=== PATIENT | female | born 1935 | race Caucasian/White ===

== ENCOUNTER 2018-05-04 20:23 | Emergency (ER) | payer MEDICARE, OTHER ==
[~2018-05-04] VITALS: Wt 52.5 kg
[2018-05-04 20:24] VITALS: BP 126/69; PULSE 71; RESP 19
[2018-05-04] MEDS ORDERED: IBUPROFEN 200 MG TAB PO ONE (20:30)
[2018-05-04] MEDS ORDERED: ACETAMINOPHEN 325 MG TAB PO ONE (21:00)
[2018-05-04] MEDS ORDERED: HYDR-4011 PO ×2 (21:57→21:58)
--- NOTE | 2018-05-05 00:42 | ERD ---
ER Documentation Chief Complaint Chief Complaint bib self, cc: right wrist to pain s/p fall 2 hours river boat [employer], mechanical HPI 82-year-old female presents with right wrist pain due to a mechanical ground- level fall that occurred 2 hours prior to being seen. Patient's pain is increased with movement. It is this moderate in severity with movement. She denies taking any medications for pain for this. ROS All systems reviewed and are negative except as per history of present illness. Medications Home Meds Discontinued Scripts Hydrocodone/Acetaminophen ([place] 5-325 Tablet) 1 Each Tablet, 1 TAB PO Q6H PRN for PAIN, #20 TAB Prov:TAMMY VILLARREAL PA-C 05/04/18 Allergies Allergies: Coded Allergies: No Known Allergy (Unverified , 05/04/18) PMhx/Soc Hx Cardiac Disorders: Yes (htn, dm) Hx Miscellaneous Medical Probl: Yes (hypothyroid) Hx Alcohol Use: No Hx Substance Use: No Hx Tobacco Use: No Smoking Status: Never smoker Physical Exam Vitals Vital Signs Date Temp Pulse Resp B/P (MAP) Pulse Ox O2 O2 Flow FiO2 Time Delivery Rate 05/04/18 98.2 71 19 126/69 100 20:24 (88) Physical Exam Const: No acute distress Head: Atraumatic Eyes: Normal Conjunctiva ENT: Normal External Ears, Nose and Mouth. Neck: Full range of motion. No meningismus. Resp: Clear to auscultation bilaterally Cardio: Regular rate and rhythm, no murmurs Abd: Soft, non tender, non distended. Normal bowel sounds Skin: No petechiae or rashes Back: No midline or flank tenderness Ext: Tender palpation in the radial aspect of the right wrist, negative snuffbox tenderness, +2 radial pulse, neurovascular intact Neur: Awake and alert Psych: Normal Mood and Affect Results 24 hrs Current Medications Medications Dose Sig/Benita Start Time Status Last (Trade) Ordered Route PRN Stop Time Admin Dose Reason Admin Ibuprofen 400 mg ONCE ONCE 05/04/18 DC 05/04/18 (Motrin) PO 20:30 05/04/18 20:39 20:31 650 mg ONCE ONCE 05/04/18 DC 05/04/18 Acetaminophen PO 21:00 05/04/18 20:46 (Tylenol 21:01 Tab) Procedures/MDM This is a 82-year-old female presenting with wrist fracture due to a mechanical fall FOOSH injury that occurred 2 hours prior to being seen. Patient was found to have mild impaction fracture of the distal right radial metaphysis, with mildly displaced intra-articular component and nondisplaced oblique fracture at the base of the ulnar styloid. Patient was placed in a sugar tong splint and given a sling. She is neurovascular intact pre-and post treatment. She is instructed to follow-up with orthopedist in the next day. Return precautions have been given she understands and agrees with this plan XR RIGHT WRIST 1. Mild impaction fracture of the distal right radial metaphysis, with mildly displaced intra-articular component. 2. Nondisplaced oblique fracture at the base of the ulnar styloid. Departure Diagnosis: Primary Impression: Distal radial fracture Additional Impression: Fracture of ulnar styloid Condition: Stable Patient Instructions: Treating Wrist Fractures, Fracture, Wrist [General] TAMMY VILLARREAL PA-C May 05, 2018 00:42
== END 2018-05-04 22:38 | disposition home or self-care (01) ==
LOC: FTE 20:23
DX: S52.571A Other intraarticular fracture of lower end of right radius, initial encounter for closed fracture (principal); I10 Essential (primary) hypertension; E11.9 Type 2 diabetes mellitus without complications; E03.9 Hypothyroidism, unspecified; S52.614A Nondisplaced fracture of right ulna styloid process, initial encounter for closed fracture; W18.39XA Other fall on same level, initial encounter; Y92.9 Unspecified place or not applicable